=== PATIENT | male | born 1995 | race Hispanic/Latino ===

== ENCOUNTER 2021-12-15 20:53 | Observation (INO) | payer OTHER, SELFPAY ==
[2021-12-15] MEDS ORDERED: Lorazepam (BATCHED) 2 MG/ML SYR ONE (21:11)
[2021-12-15 22:17] LABS: #Basophils 0.1 thou/uL (0.0-0.2); #Eosinphils 0.3 thou/uL (0.0-0.7); #Lymphocytes 1.8 thou/uL (1.20-3.40); #Monocytes 0.9 thou/uL (0.11-0.59); #Neutrophils 14.2 thou/uL (1.40-6.50); %Basophils 0.4 % (0.0-1.0); %Eosinophils 1.8 % (0.0-10.0); %Lymphocytes 10.4 % (21.0-51.0); %Monocytes 5.2 % (0.0-10.0); %Neutrophils 82.3 % (42.0-75.0); Hemoglobin 15.3 g/dL (14.0-18.0); Mean Corpuscular HGB CONC 33.4 g/dL (32.0-36.0); Mean Corpuscular Hemoglobin 30.2 pg (27.0-31.0); Mean Corpuscular Volume 90.3 fL (78.0-98.0); Mean Platelet Volume 7.5 fL (7.4-10.4); Platelet Count 289 thou/uL (130-400); Red Blood Cell (RBC) Count 5.08 mill/uL (4.70-6.10); White Blood Cell (WBC) Count 17.2 thou/uL (4.8-10.8)
[2021-12-15 22:25] LABS: ALT (SGPT) 20 U/L (8-55); AST (SGOT) 27 U/L (5-34); Albumin 4.5 g/dL (3.5-5.0); Alkaline Phosphatase 119 U/L (40-110); Anion Gap 23 mmol/L (10-20); BUN (Urea Nitrogen) 13 mg/dL (8.9-20.6); Bilirubin, Total 0.3 mg/dL (0.2-1.2); CK (CPK) 506 U/L (30-200); Calc. Creatinine Clearance 0 mL/min (70-130); Calcium 9.5 mg/dL (7.8-10.44); Carbon Dioxide 12 mmol/L (22-29); Chloride 109 mmol/L (98-107); Estimated GFR 48; Globulin 3.2 g/dL (2.4-3.5); Glucose 142 mg/dL (70-105); Potassium 4.1 mmol/L (3.5-5.1); Protein, Total 7.7 g/dL (6.0-8.3); Sodium 140 mmol/L (136-145)
[2021-12-15 23:03] LABS: Bilirubin Negative (Negative); Blood, Urine Negative (Negative); Clarity Clear (Clear); Glucose, Urine (Dipstick) Normal (Negative); Ketone, Urine Negative (Negative); Leukocyte Negative Leu/uL (Negative); Nitrite Negative (Negative); Protein, Urine (Dipstick) 50 mg/dL (Neg-Trace); Specific Gravity, Urine 1.017 (1.002-1.036); Squamous Epithelial None Seen HPF (0-3); Urobilinogen Normal mg/dL (Less than 2)
[2021-12-15 23:10] LABS: Amphetamine Detected (NotDetected); Barbiturates Screen Not Detected (NotDetected); Benzodiazepine Screen Not Detected (NotDetected); Cocaine Metabolite Screen Not Detected (NotDetected); Methadone Not Detected (NotDetected); Methamphetamine Detected (NotDetected); Opiate Screen Not Detected (NotDetected); Oxycodone Screen Not Detected (NotDetected); Phencyclidine (PCP) Not Detected (NotDetected); THC/Cannabinoid Screen Detected (NotDetected); Tricyclic Screen Not Detected (NotDetected)
[2021-12-15 23:17] LABS: Bacteria/HPF Rare-Few HPF (None Seen); RBC/HPF 0-3 HPF (0-3); Sperm/HPF Rare HPF (None Seen); WBC/HPF 0-3 HPF (0-3)
[2021-12-15] MEDS ORDERED: Lactated Ringer's 1,000 ML IV SCH (23:45)
[2021-12-16 00:56] LABS: Lactic Acid 2.5 mmol/L (0.5-2.2)
[2021-12-16 01:11] VITALS: BMI 27.4
[2021-12-16 07:31] LABS: #Basophils 0.1 thou/uL (0.0-0.2); #Eosinphils 0.4 thou/uL (0.0-0.7); #Lymphocytes 2.3 thou/uL (1.20-3.40); #Neutrophils 7.3 thou/uL (1.40-6.50); %Basophils 0.6 % (0.0-1.0); %Eosinophils 3.9 % (0.0-10.0); %Lymphocytes 20.6 % (21.0-51.0); %Monocytes 9.3 % (0.0-10.0); %Neutrophils 65.7 % (42.0-75.0); Hemoglobin 13.5 g/dL (14.0-18.0); Mean Corpuscular HGB CONC 33.5 g/dL (32.0-36.0); Mean Corpuscular Hemoglobin 30.4 pg (27.0-31.0); Mean Platelet Volume 7.3 fL (7.4-10.4); Platelet Count 238 thou/uL (130-400); RBC Distribution Width 11.9 % (11.5-14.5); Red Blood Cell (RBC) Count 4.45 mill/uL (4.70-6.10); White Blood Cell (WBC) Count 11.1 thou/uL (4.8-10.8)
[2021-12-16 07:42] LABS: Lactic Acid 0.9 mmol/L (0.5-2.2)
[2021-12-16 07:55] LABS: ALT (SGPT) 19 U/L (8-55); AST (SGOT) 25 U/L (5-34); Albumin 3.8 g/dL (3.5-5.0); Alkaline Phosphatase 89 U/L (40-110); Anion Gap 12 mmol/L (10-20); BUN (Urea Nitrogen) 11 mg/dL (8.9-20.6); Bilirubin, Total 0.6 mg/dL (0.2-1.2); CK (CPK) 555 U/L (30-200); Calc. Creatinine Clearance 121 mL/min (70-130); Calcium 8.4 mg/dL (7.8-10.44); Carbon Dioxide 21 mmol/L (22-29); Chloride 111 mmol/L (98-107); Estimated GFR 89; Globulin 2.5 g/dL (2.4-3.5); Glucose 92 mg/dL (70-105); Potassium 3.7 mmol/L (3.5-5.1); Protein, Total 6.3 g/dL (6.0-8.3); Sodium 140 mmol/L (136-145)
[2021-12-16 14:25] VITALS: BP 130/65; TEMP 97.9
== END 2021-12-16 16:45 ==
LOC: ERS 20:53 → 2NO 22:57
PROVIDERS: ADMIT Student in an Organized Health Care Education/Training Program; ATTEND Family Medicine
DX: N17.9 Acute kidney failure, unspecified (principal); R45.1 Restlessness and agitation; R00.0 Tachycardia, unspecified; E87.2 Acidosis; D72.829 Elevated white blood cell count, unspecified; T43.625A Adverse effect of amphetamines, initial encounter; T40.715A Adverse effect of cannabis, initial encounter; Z20.822 Contact with and (suspected) exposure to COVID-19; Z88.0 Allergy status to penicillin; X58.XXXA Exposure to other specified factors, initial encounter; Y35.891A Legal intervention involving other specified means, law enforcement official injured, initial encounter
CPT/HCPCS: 36415; 51702; 80053; 80306; 81003; 81015; 82550; 83605; 85025; 93005; 93010; 96361; 96374; G0378; J2060; J7120; U0003; U0005

== ENCOUNTER 2025-03-24 10:09 | Inpatient (IN) | payer SELFPAY ==
[2025-03-24] MEDS ORDERED: KETAMINE 100 MG/ML (5ML VIAL) ONE (11:00)
[2025-03-24] MEDS ORDERED: Ondansetron PF 4 MG/2 ML Vial ONE (11:01)
[2025-03-24 11:53] LABS: #Basophils Less than 0.03 10x3/uL (0.0-0.2); #Eosinophils 0.03 10x3/uL (0.0-0.7); #Monocytes 0.95 10x3/uL (0.11-0.59); #Neutrophils 11.25 10x3/uL (1.40-6.50); %Basophils 0.1 % (0.0-1.0); %Eosinophils 0.2 % (0.0-10.0); %Lymphocytes 7.6 % (21.0-51.0); %Monocytes 7.1 % (0.0-10.0); %Neutrophils 84.5 % (42.0-75.0); Hematocrit 41.5 % (42.0-52.0); Hemoglobin 14.1 g/dL (14.0-18.0); Mean Corpuscular Hemoglobin 28.7 pg (27.0-31.0); Mean Corpuscular Volume 84.5 fL (78.0-98.0); Platelet Count 276 10x3/uL (130-400); Red Blood Cell (RBC) Count 4.91 mill/uL (4.70-6.10); White Blood Cell (WBC) Count 13.34 10x3/uL (4.8-10.8)
[2025-03-24] MEDS ORDERED: HYDROcodone/Acetaminophen 5/325 mg Tablet PO PRN (11:55)
[2025-03-24] MEDS ORDERED: Acetaminophen 325 MG TAB PO PRN (11:55)
[2025-03-24] MEDS ORDERED: Ondansetron PF 4 MG/2 ML Vial IVP PRN (11:55)
[2025-03-24] MEDS ORDERED: HYDROcodone/Acetaminophen 10/325 mg Tablet PO PRN (11:55)
[2025-03-24] MEDS ORDERED: Communication Order-Pharmacy FS SCH (12:00)
[2025-03-24 12:13] LABS: ALT (SGPT) 23 U/L (Less than 45); AST (SGOT) 42 U/L (11-34); Acetaminophen Less than 10 mcg/mL (Less than 10); Albumin 4.3 g/dL (3.1-4.5); Alkaline Phosphatase 95 U/L (40-110); Anion Gap 9 mmol/L (10-20); BUN (Urea Nitrogen) 9 mg/dL (8.9-20.6); Bilirubin, Total 0.3 mg/dL (0.3-1.2); Calc. Creatinine Clearance 0 mL/min (70-130); Calcium 9.1 mg/dL (7.8-10.44); Carbon Dioxide 25 mmol/L (22-29); Chloride 106 mmol/L (98-107); Globulin 3.3 g/dL (2.4-3.5); Glucose 113 mg/dL (70-105); Potassium 3.9 mmol/L (3.5-5.1); Salicylate Less than 8.0 mg/dL (Less than 8.0); Sodium 136 mmol/L (136-145)
[2025-03-24] MEDS ORDERED: Clindamycin/D5W 900 MG in Premix 1 BAG IVPB SCH (12:15)
[2025-03-24] MEDS: Ketorolac Tromethamine 30 MG (1 mL) VIAL IVP SCH (13:11)
[2025-03-24 13:15] VITALS: BP 133/85; TEMP 98.7; BMI 37.8
== END 2025-03-24 15:54 | disposition left against medical advice (07) | DRG 563 ==
LOC: ERS 10:09 → ERHOLD 11:28
PROVIDERS: ADMIT Orthopaedic Surgery; ATTEND Orthopaedic Surgery
DX: S42.292A Other displaced fracture of upper end of left humerus, initial encounter for closed fracture (principal); W18.30XA Fall on same level, unspecified, initial encounter; Y93.02 Activity, running; Y92.89 Other specified places as the place of occurrence of the external cause; Z88.0 Allergy status to penicillin; F15.10 Other stimulant abuse, uncomplicated; Z72.0 Tobacco use; Z53.21 Procedure and treatment not carried out due to patient leaving prior to being seen by health care provider; F41.9 Anxiety disorder, unspecified; F43.10 Post-traumatic stress disorder, unspecified; F31.9 Bipolar disorder, unspecified
CPT/HCPCS: 70450; 71045; 72125; 80307; 93005; 96374; 96375; J1885; J2270; J2405